=== PATIENT | male | born 1955 | race Caucasian/White ===

== ENCOUNTER 2018-06-21 07:50 | Day surgery (SDC) | payer OTHER, SELFPAY ==
--- NOTE | 2018-06-21 09:56 | CL.D_ITS ---
Patient Name: PATIENCE COLON Study Date: 06/21/2018 Performing: Guanako Melara MD Ht: 73 inches 185.42 cm : 1955 Wt: 227.08 lbs 103 kg Age: 62 Gender: male BSA: 2.27 PROCEDURE(S) PERFORMED RC58-CBF/COR/LV CLINICAL PROFILE AND INDICATIONS Indications: Suspected CAD Heart Failure: None Stress/Imaging Stress Echocardiogram: Yes Result: Positive Intermediate RiskStress Echocardiogram : Positive Intermediate Risk CAD Presentations: No Sxs, no angina. CONCLUSIONS Normal coronary arteries Normal LV size, wall motion,and systolic function RECOMMENDATIONS Medical therapy DESCRIPTION OF PROCEDURE The patient arrived to the procedure lab. The risks and benefits of the procedure as well as a full d escription of our services here and current unavailability of surgical backup were fully explained to the patient and/or their significant other prior to the catheterization. The Timeout was completed, verifying the correct patient and procedure. The patient's procedural site was prepped and draped in the usual fashion. Local anesthetic was given subcutaneously to right radial region with Lidocaine 2% . Using a modified Seldinger technique, arterial access was obtained via the right radial artery, a 6 Fr sheath was inserted. Left Coronary Artery selective angiography was performed in multiple views u sing a 5 Fr. 4.0 Paulina catheter. Right Coronary Artery selective angiography was then performed in mu ltiple views using a 5 Fr. 4.0 Paulina catheter. Left Ventriculography was performed in EVANGELISTA projection using a 5 Fr. Pigtail catheter. LV to AO pullback pressures were then recorded.The arterial sheath wa s pulled and a TR Band was applied for hemostasis CORONARY ANGIOGRAPHY DOMINANCE: Right Dominant LEFT HEART ASSESSMENT Left Ventricular Ejection Fraction: by LV Gram 60 % Normal LV wall motion Normal Left Ventricular systolic function Normal Left Ventricular systolic function LEFT MAIN: Angiographically normal LEFT ANTERIOR DECENDING ARTERY: Angiographically normal CIRCUMFLEX ARTERY: Angiographically normal RIGHT CORONARY ARTERY: Angiographically normal COMPLICATIONS No Complications PROCEDURE MEDICATIONS Fentanyl 50 mcg IV Versed 1 mg IV Versed 1 mg IV Oxygen: 2 L/min via nasal cannula Heparin diluted in 23cc Heparinized saline. Patient given 10cc IA of this solution. 06/21/2018 09:34: 38 SUMMARY OF HEMODYNAMIC DATA Time AIR REST AO 123/67 (89) SA 09:37:53 LV 129/3, 13 09:44:25 LV 129/3, 12 09:44:31 LV 124/3, 14 09:45:55 LV 153/5, 17 09:46:02 LVp 144/4, 18 09:46:05 AOp 135/65 (93) 09:46:10 ECG 09:51:50 Signed By Guanako Melara MD On 06/21/2018 09:55:38 Guanako Melara MD
== END 2018-06-21 12:25 | disposition home or self-care (01) ==
LOC: CLSP 07:53
PROVIDERS: Family Provider Internal Medicine; PCP Internal Medicine; Visit Provider Internal Medicine Cardiovascular Disease
DX: I48.91 Unspecified atrial fibrillation (principal); I47.2 Ventricular tachycardia; R94.39 Abnormal result of other cardiovascular function study; Z82.49 Family history of ischemic heart disease and other diseases of the circulatory system
CPT/HCPCS: 93458; 99152; 99153; J7040; Q9967; C1769; C1894

== ENCOUNTER 2019-01-17 11:36 | Day surgery (SDC) | payer OTHER, SELFPAY ==
--- NOTE | 2019-01-13 16:51 | HP.PCM_ITS ---
History and Physical Date of Admission: 01/17/19 Bridger Suero is a 63 year old male?who is?presented today thinking this was his colonoscopy. He answered the OpenAccess questions at his appointment with Dr. musa and was given the prescripition. ?He hadn't heard from the nurse substance abuse, so sent a MyChart request for the procedure, and was given an appointment with me. He presumed it was for the colonoscopy, so he prepped. ? The patient was seen by for screening colonoscopy?11/22/08. ?The procedure report has been reviewed and findings as follows: Summary: Small internal hemorrhoids, (455.0) were found during the rectal exam. Few diverticula found in the descending colon (562.10). ? ? ? Subjective ? The patient?denies?change in bowel habits, rectal bleeding or abdominal pain. Having a bowel movement regularly. ? The patient reports some LUQ pain. He comes and goes, but usually at least once a day. ?Usually when sitting. ?Not related to eating or bowel routine. He describes it as a dull ache. He had shingles?in the same location?6-7 years ago. ?He later recalls that it might have become more intense after his recent respiratory infection (and cough). ?We discussed the possibility of the nerve being irritated. ? ? Review of Systems Constitutional: Negative for?unexpected weight change. HENT: Negative for?mouth sores?and trouble swallowing. ? Respiratory: Negative for?cough,?choking,?shortness of breath?and wheezing. ? Cardiovascular: Negative for?chest pain?and palpitations. Gastrointestinal: Positive for?abdominal pain?(LUQ, as noted above). Negative for?blood in stool,?constipation,?diarrhea,?nausea?and vomiting. Genitourinary: Negative for?difficulty urinating. Musculoskeletal: Negative for?arthralgias,?back pain?and joint swelling. Neurological: Negative for?tremors,?seizures,?light-headedness?and headaches. Hematological: Negative for?adenopathy.?Does not bruise/bleed easily. Psychiatric/Behavioral:?Negative.? PAST?MEDICAL?HISTORY PAST MEDICAL HISTORY Diagnosis Date ? APPENDICITIS ACUTE W PERFORATION 03/15/2009 ? Atrial fibrillation (HCC) 01/27/2013 ? Atrial Fibrillation ? Calculus of ureter 2004 ? Diverticulosis of colon (without mention of hemorrhage) ? ? Elevated blood pressure reading without diagnosis of hypertension 10/09/2015 ? 03/05/2017: ?Home BP Cuff Validated. ??Home BP: 157/90 in Right arm ??Office BP: 158/84 in Right arm ?Georgia Lemus, RN ? ? Internal hemorrhoids without mention of complication ? ? Other premature beats 12/10/2006 ? Paroxysmal A-fib (HCC) 10/09/2015 ? Shingles ? PAST?SURGICAL?HISTORY PAST SURGICAL HISTORY Procedure Laterality Date ? CARDIAC CATH ? 06/21/2018 ? normal ? COLONOSCOP W/ OR W/O BRSH SPEC ? 11/22/08 ? EXCIS SPERMATOCELE ? 2002 ? GLOBAL ESWL KIDNEY ? 2004 ? Right ureteral stone ESWL ? LAPAROSCOPY, SURGICAL, APPENDECTOMY ? 03/07/09 ? PAST SURGICAL HISTORY OF ? 1974 ? right knee ?surgery ? PAST SURGICAL HISTORY OF ? 1976 ? cyst removed from neck ? FAMILY?HISTORY FAMILY HISTORY Problem Relation Age of Onset ? Coronary Artery Disease Father 47 ? age 46 ? Hypertension Mother ? age 85 ? GI Mother ?cirrhosis, etiology not known/esophageal varices ? Diabetes Mother ? ? Hypertension Brother ? ? None Sister ? ? Ovarian cancer Maternal Grandmother ? ? CURRENT?MEDICATIONS ? Current Outpatient Medications: atenolol (TENORMIN) 25 mg tablet Take 1 tablet by mouth once daily. Disp: 90 tablet Rfl: 3 aspirin, enteric coated (ASPIRIN, ENTERIC COATED) 81 mg EC tablet Take 81 mg by mouth once daily. Disp: Rfl: ? No current facility-administered medications for this visit.? ? ? SOCIAL HISTORY: Patient is?.?He?has never smoked. ?Bridger reported?his?alcohol use as usually having up to six beers on weekends.? Objective ??Blood pressure 155/90, pulse (!) 48, height 187.3 cm (6' 1.75), weight 103.4 kg (228 lb). ? Physical Exam? Constitutional: He is?oriented to person, place, and time. He appears?well- developed?and well-nourished.?No distress. Eyes:?Conjunctivae?are normal. No scleral icterus. Neck:?Neck supple.?No tracheal deviation?present. No thyromegaly?present. Cardiovascular:?Regular rhythm?and normal heart sounds.? No murmur?heard. Pulmonary/Chest:?Effort normal?and breath sounds normal. No?respiratory distress. He has?no wheezes. Abdominal:?Soft.?Bowel sounds are normal. He exhibits?no distension?and no mass. There is?tenderness?(with deep palpation at left lower rib border). There is?no rebound?and no guarding. Musculoskeletal: He exhibits no?edema?or deformity. Lymphadenopathy: ??He has no cervical adenopathy. Neurological: He is?alert?and oriented to person, place, and time. No?cranial nerve deficit?or sensory deficit. Skin: Skin is?warm?and dry. Psychiatric: He has a?normal mood and affect. His?behavior is normal.?Judgment?and thought content?normal. ? Assessment and Plan Colorectal cancer screening??2)LUQ pain - at rib border, consider post herpatic ? Labs today. ?Consider abdominal US - the patient will think about it. ? We contacted Dr. Hendrix, to see if she would consider doing a colonoscopy since the patient has prepped. ?She is in [place] today. ?She is agreeable to do the procedure. ?The patient declines as he isn't sure his insurance would approve of the location change on short notice?and his has a dental procedure later today.? ? Dr. Chris has recommended that the patient's procedure be done at a hospital in case he has any ventricular episode during the procedure. ?The patient is aware. ??he prefers to stay in [place]. ?He agrees to January 17. ?He will see me on 01/14 for a brief update of the H&P. ? He will be?using [employer]?as the prep. ? ? The patient is asked to call with any questions for concerns, or should there be any change in health status between now and the scheduled procedure. ? ? I have personally interviewed and examined this patient. I have read the info rmation the?MA?documented in this encounter. I spent 25?minutes in the visit, with more than 50% of the total [id number] time of the visit in counseling / coordination of care. ? Maya Meade RN PROJECT MANAGER PROCESS DEVELOPMENT.SPINE SPECIALIST
--- NOTE | 2019-01-17 | GASB_PTH ---
PATIENT: PATIENCE COLON LOC: EN U#:[id number] AGE/SX: 63/M ROOM: RE01/17/[address]: Dr. Remy Park MD : 1955 BED: DIS: 01/17/2019 SPEC #: [id number] RECD: 01/17/19 14:20 STATUS: AUDIE ELIER #: [id number] NHAN: 01/17/19 00:[address]: Remy Park DEPT: SURGICAL PATHOLOGY RECD BY: Michele Wing ENTERED: 01/17/19 14:20 SP TYPE: Gastric Bx OTHR DR: Dr. Erwin Joya MD Tissues: A - Gastric mucous membrane B - Gastric mucous membrane Procedures: Surgery Specimen Level IV HEADER OPERATION[place] [place] DIAGNOSIS: LUQ pain, screening TISSUE SUBMITTED: A - Antral biopsy for H. pylori and pathology, B - GE junction biopsy MICROSCOPIC DIAGNOSIS A. Gastric antrum, biopsy: Chronic gastritis. See comment. B. Gastroesophageal junction, biopsy: Fragment of benign squamous mucosa. No evidence of inflammation or intestinal metaplasia. See comment. AM:haile 01/18/19 COMMENT A. The results of immunohistochemistry for Helicobacter pylori will be reported separately ([id number]). B. Glandular epithelium is not represented in the biopsy. AB/PAS stain with matched control is negativ for intestinal metaplasia. Clinical correlation is suggested. No MICROSCOPIC DESCRIPTION Slides are reviewed. GROSS DESCRIPTION A - Received in fixative is one container labeled with the patient's name and designated antral biopsy. The specimen consists of two irregular fragments of light abbasi soft tissue that in aggregate measure 0.5 x 0.1 x 0.1 cm. The specimen is totally submitted in one cassette. B - Received in fixative is one container labeled with the patient's name and designated GE junction biopsy. The specimen consists of one irregular fragment of light abbasi soft tissue that measures 0.3 x 0.3 x 0.1 cm. The specimen is totally submitted in one cassette. / SJ:haile 01/17/19 TC:3 CPT: 34366 x2, 45285
[2019-01-17 12:02] VITALS: BP 142/77; PULSE 48; RESP 18; TEMP 36.4; O2SAT 100; BMI 29.5
--- NOTE | 2019-01-17 13:00 | IMM_PTH ---
PATIENT: PATIENCE COLON LOC: EN U#:[id number] AGE/SX: 63/M ROOM: RE01/17/[address]: Dr. Remy Park MD : 1955 BED: DIS: 01/17/2019 SPEC #: [id number] RECD: 01/17/19 13:22 STATUS: AUDIE REAyse #: [id number] NHAN: 01/17/19 13:[address]: Remy Park DEPT: IMMUNOHISTOCHEMISTRY RECD BY: Keli Siddiqui ENTERED: 01/18/19 09:42 SP TYPE: IMMUNO OTHR DR: Dr. Erwin Joya MD Tissues: A - Stomach, NOS Procedures: H Pylori (initial) PHYSICIAN & INSTITUTION [place] [id number] SPECIMEN INFORMATION: Tissue Source: A - Antral biopsy Clinical Info: LUQ pain, screening Specimen Number: [id number] CPT code: 16047 METHODOLOGY: Deparaffinized sections of prefer/formalin-fixed tissue or PAP/DQ stained slides are incubated with monoclonal/polyclonal antibodies/oligonucleotide probes. Localization is made via biotin free immunoperoxidase method. Appropriate controls are performed and reacted as expected. Results on target cell population are indicated in the following table: RESULTS: ANTIBODY / CLONE RESULT Block A H Pylori (polyclonal) negative These tests were developed and their performance characteristics determined by [facility]. They may not have been cleared or approved by the U.S. Food and Drug Administration. The FDA has determined that such clearance or approval is not necessary. INTERPRETATION: A. Antral biopsy: Negative for Helicobacter pylori organisms. AM:haile 01/18/19
[2019-01-17 13:15] VITALS: BP 129/73; BP 142/77; PULSE 57; RESP 16; TEMP 36.4; O2SAT 99
--- NOTE | 2019-01-17 13:18 | OP.ENDO_ITS ---
01/17/2019 Erwin Joya [address] [place] [address] Re : Upper GI endoscopy procedure for Bridger Suero Dear Dr. Joya This procedure was performed on Thursday, January 17, 2019. My impressions and recommendations are as follows: Impressions : - Z-line irregular. Biopsied. - Small hiatal hernia. - Erythematous mucosa in the antrum. Biopsied. - Normal first portion of the duodenum and second portion of the duodenum. Recommendations : - Discharge patient to home (ambulatory). - Resume previous diet. - Continue present medications. - Await pathology results. - My office will telephone with pathology results in 1-2 weeks My findings are described in the full procedure note, which is enclosed. If I can be of further assistance, please feel free to contact me at Doctor phone number(s): , Work: . Sincerely, MD Jacqui Mendez MD 01/17/2019 1:18:23 PM This report has been signed electronically.
[2019-01-17 13:20] VITALS: BP 130/75; BP 142/77; PULSE 48; RESP 16; O2SAT 99
[2019-01-17 13:25] VITALS: BP 135/77; BP 142/77; PULSE 48; RESP 16; O2SAT 99
[2019-01-17 13:38] VITALS: BP 135/77; BP 142/77; PULSE 45; RESP 16; TEMP 36.2; O2SAT 100
[2019-01-17 14:02] VITALS: BP 142/77
== END 2019-01-17 14:03 | disposition home or self-care (01) ==
LOC: EN 11:36 → AC 11:38
PROVIDERS: Surgery; Family Provider Internal Medicine; PCP Internal Medicine; Referring Provider Internal Medicine; Visit Provider Surgery
PROC: 0DJD8ZZ Inspection of Lower Intestinal Tract, Via Natural or Artificial Opening Endoscopic (ICD-10-PCS; CPT 45378; principal; 2019-01-17 12:55)
DX: K22.8 Other specified diseases of esophagus (principal); K29.50 Unspecified chronic gastritis without bleeding; K44.9 Diaphragmatic hernia without obstruction or gangrene; R10.12 Left upper quadrant pain; I48.0 Paroxysmal atrial fibrillation; I49.3 Ventricular premature depolarization; R03.0 Elevated blood-pressure reading, without diagnosis of hypertension; Z79.82 Long term (current) use of aspirin
CPT/HCPCS: 43239; 88305; 88342; J7120

== ENCOUNTER 2023-04-26 12:26 | Emergency (ER) | payer MEDICARE, BC, SELFPAY ==
[2023-04-26 12:27] VITALS: BP 176/77; PULSE 52; RESP 16; TEMP 36.7; O2SAT 99; BMI 30.7
--- NOTE | 2023-04-26 12:46 | CT_ITS ---
STUDY: CT ABDOMEN AND PELVIS WITHOUT CONTRAST REASON FOR EXAM: Male, 67 years old. LEFT FLANK PAIN RADIATION DOSAGE (If Supplied By Facility): CTDIvol = ( 13.38 ) mGy, DLP = ( 782.42 ) mGycm TECHNIQUE: Transaxial images were obtained from the dome of the diaphragm to the symphysis pubis without oral contrast, and without intravenous contrast. Sagittal and coronal images were reconstructed. Individualized dose optimization techniques were used for this CT. COMPARISON: None. FINDINGS: The visualized lung bases are unremarkable. The visualized portions of the heart are within normal limits. There is decreased attenuation of the liver consistent with steatosis. Normal gallbladder and extrahepatic biliary system. Normal spleen. Normal pancreas. Normal bilateral adrenal glands. Normal right kidney. 3 mm obstructing stone at the left ureterovesical junction with mild ureteral dilatation, hydronephrosis, and perinephric edema. Normal visualized stomach. Normal small intestine. Normal colon. There are surgical clips in the region of the appendix consistent with a prior appendectomy. Normal abdominal aorta. Normal inferior vena cava. Normal retroperitoneum. Normal urinary bladder. There are prostatic calcifications. Normal abdominal wall. There are diffuse degenerative changes of the visualized lumbar spine. CT/Abdomen/Pelvis without Cont IMPRESSION: 3 mm obstructing stone at the left ureteral vesicle junction with mild ureteral dilatation, hydronephrosis, and perinephric edema. Fatty infiltration of liver. Electronically Signed: Remy Goff MD at 13:53 EDT ,
[2023-04-26] MEDS: Ondansetron 4 MG/2 ML Vial IV (12:53)
[2023-04-26] MEDS: Morphine 4 MG/ML Syringe IV (12:53)
[2023-04-26] MEDS: 0.9% Normal Saline 1,000 ML 1000 ML IV (12:54)
[2023-04-26] MEDS: Ketorolac 15 MG/ML Vial IV (12:54)
--- NOTE | 2023-04-26 12:59 | EDS_ITS ---
HPI History of Present Illness Chief Complaint: Flank Pain Narrative Narrative: Patient is 67-year-old male with history of hypertension, history of atrial fibrillation that is controlled with atenolol, glaucoma who presents to the emergency department with left-sided flank pain that radiates to his left abdomen. Patient states this woke him up abruptly at 4 AM. Patient does have history of kidney stones 20 years ago however states this feels worse. He denies any urinary symptoms. Denies any fever or chills. He does state slight nausea. PFSH [facility] Home Medications aspirin 81 mg chewable tablet 81 mg PO DAILY@0800 02/19/14 [History Last Taken 06/21/18] atenolol 25 mg tablet 25 mg PO DAILY ##30 02/19/14 [Rx Last Taken 01/17/19 07:00] ibuprofen 600 mg tablet 600 mg PO Q6H PRN PRN pain #20 TABLETS 04/26/23 [Rx Last Taken Unknown] ondansetron 4 mg disintegrating tablet 4 mg PO Q8H PRN PRN Nausea #10 tabs 04/26/23 [Rx Last Taken Unknown] oxycodone-acetaminophen 5 mg-325 mg tablet (Percocet) 1 tab PO Q8H PRN pain 3 days #10 tabs 04/26/23 [Rx Last Taken Unknown] tamsulosin 0.4 mg capsule (Flomax) 0.4 mg PO DAILY #7 caps 04/26/23 [Rx Last Taken Unknown] Allergy/AdvReac Type Severity Reaction Status Date / Time No Known Allergies Allergy Verified 01/17/19 12:01 Social History Smoking Status: Never smoker ROS ROS ED ROS Narrative Constitutional: Negative for fever, chills, weight loss, weakness Eyes: Negative for vision loss, vision change, double vision ENT: Negative for any sore throat, ear pain, congestion Cardiovascular: Negative for any chest pain, tightness, palpitations Respiratory: Negative for any cough, sputum production, hemoptysis, dyspnea, dyspnea on exertion, orthopnea Gastrointestinal: Negative for any nausea, vomiting, diarrhea, constipation, blood in stool, blood in vomit. Positive for left sided flank pain that radiates to the left abdomen : Negative for any urinary frequency, dysuria, retention, blood in urine Muscle skeletal: Negative for any muscle joint pain, stiffness, myalgias, arthralgias, neck pain, back pain Neurological: Negative for any headache, syncope, numbness or tingling, dizziness Skin: Negative for any rashes, lumps, itching, abrasions, lacerations Psychiatric: Negative for any depression, anxiety, stress, suicidal ideation, homicidal ideation Hematologic: Negative for any easy bruising, excessive bruising, easy bleeding Allergies: Negative for any eczema, hives, rash EXAM Physical Exam Narrative Exam Narrative: Vital signs reviewed. HEET: Head normocephalic atraumatic, TMs clear bilaterally. Posterior pharynx is clear, moist mucous membranes. Nares clear bilaterally. Neck: Supple with no lymphadenopathy or tenderness. No signs of meningismus, negative jolt sign. Cardiac: Regular rate and rhythm no murmurs gallops or rubs, equal peripheral pulses bilaterally. Respiratory: Lungs clear to auscultation bilaterally. No chest tenderness. Abdomen: Soft,nondistended. No abdominal bruit or pulsatile masses. No hepatosplenomegaly. Tenderness to the left lower abdomen. Extremities: No peripheral edema, no signs of gross trauma or deformity. Active full range of motion of all extremities. Neuro: Cranial nerves II through XII intact, no focal neurological deficits. Skin: Clean dry and intact with no rash, purpura, petechiae, vesicles or pustules. Backs/flank: No CVA tenderness, no midline spinal tenderness, no deformity. Psych: Normal mood and affect. No SI, HI or acute psychosis. Const Vital Signs: 04/26/23 12:27 04/26/23 12:58 Temperature 98.0 F Temperature Source Temporal Pulse Rate 52 L Respiratory Rate 16 Respiratory Effort Normal Non-Labored Respiratory Pattern Normal Blood Pressure 176/77 H Blood Pressure Mean 110 Pulse Ox 99 Oxygen Delivery Method Room Air [facility] Lab Data Labs: Laboratory Results - last 24 hr 04/26/23 04/26/23 12:50 14:08 WBC 9.3 RBC 4.67 Hgb 16.2 Hct 44.9 MCV 96.1 H MCH 34.7 H MCHC 36.1 H RDW Std Deviation 41.1 RDW Coeff of [place] 11.8 Plt Count 151 MPV 10.7 Immature Gran % (Auto) 0.400 Neut % (Auto) 80.1 H Lymph % (Auto) 10.1 L [place] % (Auto) 8.8 Eos % (Auto) 0.2 Baso % (Auto) 0.4 Absolute Neuts (auto) 7.5 Absolute Lymphs (auto) 0.94 Nucleated RBC % 0 Sodium 136 Potassium 3.9 Chloride 102 Carbon Dioxide 28.0 Anion Gap 6 BUN 13 Creatinine 1.01 Estim Creat Clear Calc 82.41 Est GFR (MDRD) Af Amer 95 Est GFR (MDRD) Non-Af 79 BUN/Creatinine Ratio 12.9 Glucose 115 H Calcium 9.3 Total Bilirubin 1.00 AST 27 ALT 37 Alkaline Phosphatase 81 Total Protein 7.9 Albumin 3.9 Globulin 4.0 Albumin/Globulin Ratio 1.0 Lipase 48 Urine Color Yellow Urine Clarity Clear Urine pH 7.0 Ur Specific [place] 1.005 Urine Protein Negative Urine Glucose (UA) Normal Urine Ketones Negative Urine Occult Blood 10 H Urine Nitrite Negative Urine Bilirubin Negative Urine Urobilinogen Normal Ur Leukocyte Esterase Negative Urine RBC 0 SEEN Urine WBC 0 SEEN Ur Squamous Epith Cells 0 SEEN Urine Bacteria 0 SEEN Urine Mucus 0 SEEN Radiography Diagnostic Testing: Clinical Impression(s) from Imaging Studies Abdomen/Pelvis CT 04/26/23 12:46 IMPRESSION: 3 mm obstructing stone at the left ureteral vesicle junction with mild ureteral dilatation, hydronephrosis, and perinephric edema. Fatty infiltration of liver. Electronically Signed: Remy Goff MD at 13:53 EDT , Treatment and Re-Evaluation :: Patient appears to be in mild distress secondary left flank pain that raise on left abdomen. Vital signs are stable. Looks nontoxic. Physical examination as well as the HPI is concerning for obstructive uropathy. However patient will receive IV fluids, Zofran Toradol as well as morphine. He will have a CT scan of the abdomen pelvis without contrast concerning for any stone, diverticulitis, bowel obstruction, perforation. Patient will receive basic laboratory values. Patient's laboratory values showed a normal CBC, chemistries were unremarkable. Patient's urinalysis was negative for any infection. Patient CT scan of the abdomen pelvis, this showed a 3 mm obstructing stone at the left utero vesicular junction with mild ureteral dilation, hydronephrosis,. Perinephric edema. Patient on reevaluation was feeling better with IV fluids Toradol Zofran and morphine. Patient at this time has no evidence of infection, infected stone, I believe the patient able to pass the stone. Patient be sent home with Flomax, Zofran, Percocet. He will also take anti-inflammatories as needed. He will follow-up with urology here. He was given strict return precautions. I spoke with the patient as well as the patient's . All questions answered. Discharge Plan Triage Chief Complaint: Flank Pain ED Midlevel Provider: Peyman Ernst ED Provider: Trinidad Yousif Dx/Rx/DC Orders Clinical Impression: Acute flank pain, Kidney stone Instructions: ED Kidney Stone w/ Colic Prescriptions: New oxycodone-acetaminophen [Percocet] 5-325 mg tablet 1 tab PO Q8H PRN (Reason: pain) 3 Days Qty: 10 0RF tamsulosin [Flomax] 0.4 mg capsule 0.4 mg PO DAILY Qty: 7 0RF ondansetron 4 mg tablet,disintegrating 4 mg PO Q8H PRN PRN (Reason: Nausea) Qty: 10 0RF ibuprofen 600 mg tablet 600 mg PO Q6H PRN PRN (Reason: pain) Qty: 20 0RF No Action aspirin 81 MG tablet,chewable 81 mg PO DAILY@0800 atenolol 25 MG tablet 25 mg PO DAILY Qty: 30 0RF Primary Care Provider: Erwin Joya Referrals: Ashutosh Guzman MD [Med Staff - Active Staff] - Erwin Joya MD [Primary Care Provider] - Activity Restrictions/Additional Instructions: Please follow-up with urology Disposition Disposition: Home, Self Care
[2023-04-26 13:00] LABS: Absolute Lymphocyte Count 0.94 X10^3/uL (0.83-4.51); Absolute Neutrophil Count 7.5 X10^3/uL (2.0-7.7); Basophil# 0.04 X10^3/uL; Basophil% 0.4 % (0-1); Eosinophil# 0.02 X10^3/uL; Eosinophils% 0.2 % (0-5); Hematocrit 44.9 % (40-54); Hemoglobin 16.2 g/dL (13.0-16.5); Lymphocyte # 0.94 X10^3/ul (0.83-4.51); Lymphocyte % 10.1 % (19-41); Mean Corp Hgb Conc 36.1 g/dL (32-36); Mean Corpuscular Hgb 34.7 pg (27.0-32.0); Mean Corpuscular Volume 96.1 fL (80-94); Mean Platelet Vol. 10.7 fl (6.2-12.0); Monocyte# 0.82 X10^3/uL; Monocyte% 8.8 % (0-10); NRBC Flagged by Analyzer 0 % (0-5); Neutrophil # 7.47 X10^3/uL (2.7-7.7); Neutrophil % 80.1 % (47-70); Platelet Count 151 K/mm3 (150-450); RBC Distribution Width CV 11.8 % (11.6-14.6); RBC Distribution Width SD 41.1 fl (35.1-43.9); Red Blood Count 4.67 M/mm3 (4.6-6.2); White Blood Count 9.3 K/mm3 (4.4-11.0)
[2023-04-26 13:16] LABS: AST(SGOT) 27 U/L (15-37); Alanine Aminotransfer ALT/SGPT 37 U/L (16-61); Albumin, Serum 3.9 g/dL (3.2-5.0); Alkaline Phosphatase 81 U/L (45-117); Anion Gap 6 (5-15); BUN 13 mg/dL (7-18); BUN/Creat Ratio 12.9 RATIO (10-20); Calcium,Total 9.3 mg/dL (8.5-10.1); Chloride 102 mmol/L (98-107); Creatinine, Serum 1.01 mg/dL (0.70-1.30); EST Glomerular Filtration Rate 79 mL/min (>60); Est Glom Filt Rate - Afr Amer 95 mL/min (>60); Estimated Creatinine Clearance 82.41 ml/min; Glucose 115 mg/dL (74-106); Lipase 48 U/L (13-75); Potassium 3.9 mmol/L (3.5-5.1); Protein, Total 7.9 g/dL (6.4-8.2); Sodium Level 136 mmol/L (136-145)
[2023-04-26] MEDS: Tamsulosin HCl 0.4 MG Capsule PO (14:07)
[2023-04-26 14:09] LABS: Bacteria 0 SEEN /hpf (None Seen); Mucous, Urine 0 SEEN /hpf (<or=2+); Red Blood Cells-Urine 0 SEEN /hpf (0-5); Squamous Epithelial Cells - UA 0 SEEN /hpf (0-5); White Blood Cells 0 SEEN /hpf (0-5)
[2023-04-26 14:11] LABS: Color, Urine Yellow (Yellow); Glucose, Dipstick Normal (Normal); Ketone-Dipstick Negative (Negative); Leukocyte Esterase-Dipstick Negative /ul (Negative); Nitrite-Dipstick Negative (Negative); Occult Blood-Urine 10 /ul (Negative); Protein-Dipstick Negative (Negative); Specific Gravity, Urine 1.005 (1.002-1.030); Urine Bilirubin Dipstick Negative (Negative); Urine Clarity Clear (Clear); Urine Urobilinogen Normal (Normal)
== END 2023-04-26 14:54 | disposition home or self-care (01) ==
PROVIDERS: Nurse Practitioner; Emergency Provider Emergency Medicine; PCP Internal Medicine; Visit Provider Emergency Medicine
DX: N13.2 Hydronephrosis with renal and ureteral calculous obstruction (principal); I10 Essential (primary) hypertension; Z79.82 Long term (current) use of aspirin; Z79.899 Other long term (current) drug therapy
CPT/HCPCS: 74176; 80053; 81001; 83690; 85025; 96361; 96374; 96375; 99282; J7030; A4216; J2405

== ENCOUNTER 2024-09-06 08:00 | Outpatient (RCR) | payer MEDICARE, BC, SELFPAY ==
--- NOTE | 2024-08-12 15:27 | HP.PTEVAL ---
Patient's Visit Information Visit Information Visit Information: PATIENCE COLON is a 68 year old M referred to Physical Therapy by JYOTHI Anglin with a diagnosis of INTERVERTEBRAL DISC DEGENEERATION ,LUMABR WITHOUT LPB OR LE PAIN. Date of Evaluation: 08/12/24 Physical Therapist: Bo Mock, PT, Cert MDT, OCS Visit Plan Frequency: 2x /Week Duration: 4 Weeks Plan: PT INTERVENTIONS HIP ( GLUT MEDIUS STRENGTHENING), CORE STRENGTHENING( DLS) ,LE FLEXABILITY ,MANUAL THERAPY ( FOAM ROLL /STICK ROLL I T BAND , ADN FUNCTIONAL STRENGTHENING ,MODALITIES PRN Subjective Subjective: This 68 y/o male presents to physical therapy with left lateral hip pain. Patient has had back pain to lateral hip for ~ 6 weeks. Patient seen [place] spine of [facility] Jacques who did x-rays showed DDD L4-5,L5-S1 . Prescribed meloxicam. RTD in 2 months . Patient has h/o right plantar fasciitis. Aggravating factors sitting extended to get up pain in hip ,extended walking going up steps .Alleviating factors sitting ,okay with bening . 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 Cough /sneezing -Bowel/bladder. Denies paresthesia/tingling -. Patient sleeping good. Patient condition affects QOL and function. Patient goals to have no pain. SOCIAL: VOCATION: Retired electrician front Objective Objective: POSTURE: WFL ,asymmetries right leg shorter GAIT: reciprocal pattern decrease stance time lateral way glut medius weakness PALPATION: mild IT band NEURO: denies paresthesia/tingling FLEXABLITY: hamstrings min tight ,piriformis min tight LUMBAR ROM: flexion min loss ,extension min/mod tight ,side glides min tight MMT: quads/hams 4/5 ,( peak force) hip flexion 26.7 ,glut medius 21.1 pain Special Tests L/S Slump test left side: Negative L/S Slump test right side: Negative L/S Left Straight Leg Raise: Negative L/S Right Straight Leg Raise: Negative Lumbar Standing: Flexion - Mechanical Response: No effect Lumbar Standing: Flexion - Symptoms During Testing: No effect Lumbar Standing: Flexion - Symptoms After Testing: No effect Lumbar Standing: Extension - Mechanical Response: No effect Lumbar Standing: Extension - Symptoms During Testing: No effect Lumbar Standing: Extension - Symptoms After Testing: No effect Lumbar Standing: Right Side Glides - Mechanical Response: No effect Lumbar Standing: Right Side [place] - Symptoms During Testing: No effect Lumbar Standing: Right Side [place] - Symptoms After Testing: No effect Lumbar Standing: Left Side [place] - Mechanical Response: No effect Lumbar Standing: Left Side [place] - Symptoms During Testing: Increases Lumbar Standing: Left Side [place] - Symptoms After Testing: No worse Lumbar Lying: Flexion - Mechanical Response: No effect Lumbar Lying: Flexion - Symptoms During Testing: No effect Lumbar Lying: Flexion - Symptoms After Testing: No effect Lumbar Lying: Extension - Mechanical Response: No effect Lumbar Lying: Extension - Symptoms During Testing: No effect Lumbar Lying: Extension - Symptoms After Testing: No effect Balance/Special Test Scores Lower Extremity Functional Score: 41 Goals Goal 1:: Patient to be I with HEP for back Goal Time Frame: 4-6 Weeks Goal 2:: Patient to improve peak force hip extension/abduction by by 5-10 # strength to improve function Goal Time Frame: 4-6 Weeks Goal 3:: Patient to improve LFES score by 5 points to improve QOL Goal Time Frame: 4-6 Weeks Goal 4:: Patient to improve gait with less pain community distances 80% of the time Goal Time Frame: 4-6 Weeks Goal 5:: Patient to demonstrate 60% improvement with less pain and improved function . Goal Time Frame: 4-6 Weeks Rehabilitation Potential Physical Therapy Diagnosis: This patient has pain and weakness of glut medius with pain with gait ,extended distances stairs no pain with motion testing thus benefit from skilled PT Rehabilitation Potential: Good Anticipated Interventions Patient/Client Instruction: Educate patient on: Condition and Plan of Care For the Purpose of:: To decrease pain, To increase ROM, To improve muscle performance and motor function, To improve ability to perform ADL's, To increase tolerance to activity/condition/position, To improve ability of physical actions for home/community/work/leisure, To improve health of tissue, To decrease soft tissue restriction, To increase flexibility/ROM, To improve endurance and To reduce risk of recurrence Therapeutic Exercise to Include: Strength training, Endurance training, Balance training, Postural training, Flexibilty training and Dynamic Lumbar Stabilization Comment: HIP ( GLUT MEDIUS) For the Purpose of:: To decrease pain, To increase ROM, To improve nutrient delivery to tissue, To increase oxygenation perfusion, To improve muscle performance and motor function, To improve ability of physical actions for home/community/work/leisure, To improve health of tissue, To decrease soft tissue restriction, To increase flexibility/ROM, To improve endurance and To improve balance Manual Therapy Techniques to Include: Soft tissue mobilization Comment: I TBAND For the Purpose of:: To decrease pain, To increase ROM, To improve muscle performance and motor function, To improve health of tissue, To decrease soft tissue restriction and To increase flexibility/ROM Text: Thank you for the opportunity to evaluate your patient. For Medicare and Medicare HMO plans, please review the plan of care and approve it. It will need to be FAXED BACK to us at [phone] for Medicare purposes. For Medicare only, by signing this I certify the plan of care. Please let me know if there are questions or concerns regarding this plan of care. Physician Signature: Date:
--- NOTE | 2024-09-06 08:22 | HP.PTDCSUM ---
Discharge Summary D/C summary: It has been my pleasure to treat PATIENCE COLON referred by JYOTHI Anglin, with the diagnosis of INTERVERTEBRAL DISC DEGENEERATION ,LUMABR WITHOUT LPB OR LE PAIN for a total of 7 visit(s). Discharge Date: 09/06/24 Please see the following information for a summary of their discharge status. Subjective Subjective: Patient doing well ,ready to be D/C ,walking 3-4 miles Pain LB: Pain Intensity (Out of 10): 2 L lateral hip: Pain Intensity (Out of 10): 1 Overall Improvement % Improvement: 75 Objective Objective/Function: POSTURE: WFL ,asymmetries right leg shorter GAIT: reciprocal pattern decrease stance time lateral way glut medius weakness PALPATION: mild IT band NEURO: denies paresthesia/tingling FLEXABLITY: hamstrings min tight ,piriformis min tight LUMBAR ROM: flexion WFL ,extension min tight ,side glides min tight MMT: quads/hams 4/5 ,( peak force) hip flexion 49.2,glut medius 36.6 Goals Goal 1:: Patient to be I with HEP for back Goal Progress: Goal Met Goal 2:: Patient to improve peak force hip extension/abduction by by 5-10 # strength to improve function Goal Progress: Goal Met Goal 3:: Patient to improve LFES score by 5 points to improve QOL Goal Progress: Goal Met Goal 4:: Patient to improve gait with less pain community distances 80% of the time Goal Progress: Goal Met Goal 5:: Patient to demonstrate 60% improvement with less pain and improved function . Goal Progress: Goal Met Plan Plan: D/C to HEP D/C Information Discharge Comments: HEP d/c sentence: If there are questions or concerns regarding this patient's physical therapy, please feel free to call me at [phone]. Thank you for the referral of this patient. Sincerely, Bo oMck, PT, Cert MDT, OCS Balance/Gait/Functional tests Balance/Special Test Scores Oswestry Low Back Score: 0 Lower Extremity Functional Score: 41 Improvement % Improvement: 75
== END 2024-09-06 19:00 | disposition home or self-care (01) ==
LOC: PT 08:00
PROVIDERS: PCP Internal Medicine; Referring Provider Student in an Organized Health Care Education/Training Program; Visit Provider Student in an Organized Health Care Education/Training Program
DX: M51.369 Other intervertebral disc degeneration, lumbar region without mention of lumbar back pain or lower extremity pain (principal)
CPT/HCPCS: 97110; 97162; 97530

== ENCOUNTER → 2025-05-03 | Outpatient (CLI) | payer MEDICARE, BC, SELFPAY ==
--- NOTE | 2025-05-03 17:07 | CT_ITS ---
PROCEDURE: SINUS/FACIAL BONE 05/03/2025 REASON FOR EXAM: L MAXILLARY SINUSITIS TECHNIQUE: SINUS/FACIAL BONE Coronal and Sagittal reconstruction series were provided. One or more dose reduction techniques were used (e.g., Automated exposure control, adjustment of the mA and/or kV according to patient size, use of iterative reconstruction technique). RADIATION DOSE SUMMARY: CTDlvol: 33.06 mGy DLP: 871 mGycm COMPARISON: None. FINDINGS: FRONTAL SINUSES: Normal aeration, without mucosal inflammatory disease. ETHMOIDAL SINUSES: Mild chronic mucosal inflammatory changes of the ethmoid air cells. MAXILLARY SINUSES: Minimal chronic mucosal inflammatory changes of the right maxillary sinus. Mild chronic mucosal inflammatory changes of the left maxillary sinus. SPHENOIDAL SINUSES: Normal aeration, without mucosal inflammatory disease. Mild reverse S shaped nasal septum deviation. There is patency of the bilateral maxillary infundibuli with normal uncinate processes, ethmoid bullae, and hiatus semilunaris. Normal bilateral middle turbinates. Normal bilateral inferior turbinates. There is patency of the bilateral nasal airways. The visualized osseous structures are normal. The visualized bilateral orbital contents are normal. CT/Sinus/Facial Bone IMPRESSION: Minimal chronic mucosal inflammatory changes of the right maxillary sinus. Mild chronic mucosal inflammatory changes of the left maxillary sinus. Mild chronic mucosal inflammatory changes of the ethmoid air cells. Mild reverse S shaped nasal septum deviation. Reading [facility] [id number]
== END | disposition home or self-care (01) ==
PROVIDERS: PCP Internal Medicine; Referring Provider Otolaryngology; Visit Provider Otolaryngology
DX: J32.8 Other chronic sinusitis (principal)
CPT/HCPCS: 70486